=== PATIENT | female | born 1960 | race Caucasian/White ===

== ENCOUNTER 2018-02-12 14:35 | Emergency (ER) | payer OTHER, SELFPAY ==
--- NOTE | 2018-02-12 16:54 | RAD ---
SINGLE CONTRAST BARIUM SWALLOW 02/12/18 CLINICAL HISTORY: Dysphagia. FINDINGS: Emergency barium swallow performed at request of ordering Emergency Room physician. The patient was a dministered thin liquid barium which was visualized under real time fluoroscopy. There is appropriate swallowing mechanism and esophageal motility, with free passage of liquid contrast through the esoph coreen and into the stomach without evidence of persistent mass effect or constricting lesion. No signi ficant reflux or evidence of hiatal hernia. 12.5 mm barium tablet was administered and did pass the e sophagus into the stomach. IMPRESSION: Unremarkable single contrast barium swallow. POS: [facility]
== END 2018-02-12 17:42 | disposition home or self-care (01) ==
LOC: ERS 14:35
DX: R13.10 Dysphagia, unspecified (principal); E11.9 Type 2 diabetes mellitus without complications; E03.9 Hypothyroidism, unspecified; E78.5 Hyperlipidemia, unspecified; Z79.84 Long term (current) use of oral hypoglycemic drugs; Z79.899 Other long term (current) drug therapy
CPT/HCPCS: 74220

== ENCOUNTER 2019-01-26 14:50 | Emergency (ER) | payer SELFPAY ==
[2019-01-26] MEDS ORDERED: Ondansetron PF 4 MG/2 ML Vial ONE (15:01)
[2019-01-26] MEDS ORDERED: Mag-Al 1200 mg/1200 mg/30 ML UDCUP ONE (15:30)
[2019-01-26] MEDS ORDERED: Lidocaine Viscous Sol 2% 15 ml UD Cup ONE (15:30)
[2019-01-26 15:41] LABS: #Basophils 0.1 thou/uL (0.0-0.2); #Eosinphils 0.2 thou/uL (0.0-0.7); #Lymphocytes 1.6 thou/uL (1.20-3.40); #Monocytes 0.6 thou/uL (0.11-0.59); #Neutrophils 4.4 thou/uL (1.40-6.50); %Basophils 0.9 % (0.0-1.0); %Eosinophils 2.5 % (0.0-10.0); %Lymphocytes 23.4 % (21.0-51.0); %Monocytes 9.3 % (0.0-10.0); %Neutrophils 63.9 % (42.0-75.0); Hemoglobin 13.3 g/dL (12.0-16.0); Mean Corpuscular HGB CONC 33.9 g/dL (32.0-36.0); Mean Corpuscular Hemoglobin 29.7 pg (27.0-31.0); Mean Corpuscular Volume 87.8 fL (78.0-98.0); Mean Platelet Volume 6.8 fL (7.4-10.4); Platelet Count 319 thou/uL (130-400); RBC Distribution Width 12.1 % (11.5-14.5); Red Blood Cell (RBC) Count 4.48 mill/uL (4.20-5.40); White Blood Cell (WBC) Count 6.9 thou/uL (4.8-10.8)
[2019-01-26 15:51] LABS: ALT (SGPT) 32 U/L (8-55); AST (SGOT) 28 U/L (5-34); Albumin 4.3 g/dL (3.5-5.0); Alkaline Phosphatase 73 U/L (40-110); Anion Gap 13 mmol/L (10-20); BUN (Urea Nitrogen) 16 mg/dL (9.8-20.1); Bilirubin, Total 0.5 mg/dL (0.2-1.2); Calc. Creatinine Clearance 0 mL/min (70-130); Calcium 9.9 mg/dL (7.8-10.44); Carbon Dioxide 23 mmol/L (22-29); Chloride 103 mmol/L (98-107); Estimated GFR-MDRD 73; Glucose 86 mg/dL (70-105); Lipase 32 U/L (8-78); Potassium 4.2 mmol/L (3.5-5.1); Protein, Total 7.3 g/dL (6.0-8.3); Sodium 135 mmol/L (136-145)
[2019-01-26] MEDS ORDERED: Glycopyrrolate 0.4 MG/ 2 ML VIAL SLOW IVP SCH (16:00)
[2019-01-26] MEDS ORDERED: Glycopyrrolate 0.2 MG/ML 5 ML SYRINGE SLOW IVP SCH (16:15)
--- NOTE | 2019-01-26 16:40 | RAD ---
SINGLE VIEW OF THE CHEST: 01/26/19 COMPARISON: None. HISTORY: Syncope with possible aspiration. FINDINGS: Single view of the chest shows a normal sized cardiomediastinal silhouette. There is no evidence of c onsolidation, mass, or pleural effusion. Degenerative changes and postsurgical changes are seen in th e spine. IMPRESSION: No evidence of acute cardiopulmonary disease. POS: [facility]
[2019-01-26 16:47] LABS: Bacteria/HPF None Seen HPF (None Seen); Bilirubin Negative (Negative); Blood, Urine 1+ (Negative); Clarity Clear (Clear); Glucose, Urine (Dipstick) Normal (Negative); Leukocyte 75 Leu/uL (Negative); Nitrite Negative (Negative); Protein, Urine (Dipstick) 20 mg/dL (Neg-Trace); Squamous Epithelial 0-3 HPF (0-3); Urobilinogen Normal mg/dL (Less than 2)
== END 2019-01-26 17:42 | disposition home or self-care (01) ==
LOC: ERS 14:50
DX: R55 Syncope and collapse (principal); R11.2 Nausea with vomiting, unspecified; E03.9 Hypothyroidism, unspecified; E11.9 Type 2 diabetes mellitus without complications; E78.5 Hyperlipidemia, unspecified; Z79.82 Long term (current) use of aspirin; Z79.899 Other long term (current) drug therapy
CPT/HCPCS: 71045; 80053; 81003; 81015; 83690; 84484; 85025; 93005; 96361; 96374; 96375; J2405

== ENCOUNTER 2022-05-30 19:57 | Inpatient (IN) | payer SELFPAY ==
[~2022-05-30 19:57] MED LIST: Iopamidol-370 76% 500 ML 1 ML ONE
[2022-05-30 21:34] LABS: Bilirubin Negative (Negative); Blood, Urine Small (Negative); Clarity Clear (Clear); Glucose, Urine (Dipstick) Negative (Negative); Ketone, Urine Negative (Negative); Leukocyte Moderate (Negative); Nitrite Negative (Negative); Protein, Urine (Dipstick) Trace mg/dL (Neg-Trace); Specific Gravity, Urine 1.015 (1.005-1.030); pH, Urine 7.5 (5.0-9.0)
[2022-05-30 22:05] LABS: ALT (SGPT) 42 U/L (8-55); AST (SGOT) 38 U/L (5-34); Albumin 3.8 g/dL (3.4-4.8); Alkaline Phosphatase 88 U/L (40-110); Anion Gap 15 mmol/L (10-20); BUN (Urea Nitrogen) 14 mg/dL (9.8-20.1); Bilirubin, Total 0.5 mg/dL (0.2-1.2); Calc. Creatinine Clearance 0 mL/min (70-130); Calcium 9.1 mg/dL (7.8-10.44); Carbon Dioxide 19 mmol/L (23-31); Chloride 108 mmol/L (98-107); Estimated GFR 77; Globulin 2.7 g/dL (2.4-3.5); Glucose 95 mg/dL (80-115); Lipase 40 U/L (8-78); Potassium 4.5 mmol/L (3.5-5.1); Protein, Total 6.5 g/dL (5.8-8.1); Sodium 137 mmol/L (136-145)
[2022-05-30 23:21] LABS: Hemoglobin 12.1 g/dL (12.0-16.0); Mean Corpuscular HGB CONC 32.3 g/dL (32.0-36.0); Mean Corpuscular Hemoglobin 28.8 pg (27.0-31.0); Mean Corpuscular Volume 89.2 fl (78.0-98.0); RBC Distribution Width 13.6 % (11.5-14.5)
[2022-05-30 23:36] LABS: Band 10 % (5-11); Lymphocytes 2 % (21-51); MDiff Complete? YES; Mean Platelet Volume 8.6 fL (7.4-10.4); Monocytes 4 % (0-10); Neutrophil 84 % (42-75); Platelet Count 274 10x3/uL (130-400); Platelet Morphology Comment Appears Adequate; White Blood Cell (WBC) Count 26.8 10x3/uL (4.8-10.8)
[2022-05-30] MEDS ORDERED: Cefepime 2 GM VIAL ONE (23:39)
[2022-05-31] MEDS ORDERED: Ondansetron PF 4 MG/2 ML Vial IVP PRN (00:13)
[2022-05-31] MEDS ORDERED: Acetaminophen 325 MG TAB PO PRN (00:13)
[2022-05-31] MEDS ORDERED: metroNIDAZOLE 500 MG/100 ML BAG ONE (00:18)
[2022-05-31] MEDS ORDERED: Dextrose 50% Abboject 50 ML SYRINGE SLOW IVP PRN (00:26)
[2022-05-31] MEDS ORDERED: Dextrose 5% in Water 1,000 ML IV PRN (00:26)
[2022-05-31] MEDS ORDERED: HumaLOG 300 UNITS/3 ML VIAL SC PRN (00:26)
[2022-05-31 02:20] VITALS: BMI 19.5
[2022-05-31] MEDS: Sodium Chloride 0.9% 1,000 ML IV SCH ×2 (03:06→09:13)
[2022-05-31 05:32] LABS: ALT (SGPT) 37 U/L (8-55); AST (SGOT) 32 U/L (5-34); Albumin 3.3 g/dL (3.4-4.8); Alkaline Phosphatase 70 U/L (40-110); Anion Gap 10 mmol/L (10-20); BUN (Urea Nitrogen) 9 mg/dL (9.8-20.1); Bilirubin, Total 0.4 mg/dL (0.2-1.2); Calc. Creatinine Clearance 66 mL/min (70-130); Calcium 8.1 mg/dL (7.8-10.44); Carbon Dioxide 17 mmol/L (23-31); Chloride 112 mmol/L (98-107); Estimated GFR 95; Globulin 2.5 g/dL (2.4-3.5); Glucose 124 mg/dL (80-115); Magnesium 1.8 mg/dL (1.6-2.6); Phosphorus 2.5 mg/dL (2.3-4.7); Potassium 4.1 mmol/L (3.5-5.1); Protein, Total 5.8 g/dL (5.8-8.1); Sodium 135 mmol/L (136-145)
[2022-05-31] MEDS ORDERED: Levothyroxine Sodium 50 MCG TAB PO SCH (06:00)
[2022-05-31] MEDS ORDERED: metroNIDAZOLE 500 MG in Premix Bag 1 BAG IVPB SCH (06:00)
[2022-05-31 06:03] LABS: #Eosinphils 0.1 thou/uL (0.0-0.7); #Lymphocytes 1.5 thou/uL (1.20-3.40); #Monocytes 0.8 thou/uL (0.11-0.59); #Neutrophils 12.2 thou/uL (1.40-6.50); %Basophils 0.3 % (0.0-1.0); %Eosinophils 0.4 % (0.0-10.0); %Monocytes 5.7 % (0.0-10.0); %Neutrophils 83.6 % (42.0-75.0); Hemoglobin 11.3 g/dL (12.0-16.0); Mean Corpuscular HGB CONC 36.1 g/dL (32.0-36.0); Mean Corpuscular Hemoglobin 32.1 pg (27.0-31.0); Mean Platelet Volume 7.7 fL (7.4-10.4); Platelet Count 302 10x3/uL (130-400); RBC Distribution Width 13.1 % (11.5-14.5); White Blood Cell (WBC) Count 14.6 10x3/uL (4.8-10.8)
[2022-05-31] MEDS ORDERED: Liothyronine Sodium 25 MCG TAB PO SCH (09:00)
[2022-05-31] MEDS: FLUoxetine HCl 20 MG CAP PO SCH ×2 (09:47→20:46)
[2022-05-31] MEDS: Cholecalciferol 1,000 UNITS (25 MCG) TAB PO SCH (09:48)
[2022-05-31] MEDS: Aspirin 81 mg Enteric Coated Tablet PO SCH (09:48)
[2022-05-31] MEDS: ALPRAZolam 0.25 MG TAB PO SCH (09:53)
[2022-05-31] MEDS: metroNIDAZOLE 500 MG in Premix Bag 1 BAG IVPB SCH ×2 (09:54→17:25)
[2022-05-31] MEDS: Lactated Ringer's 1,000 ML IV SCH (09:54)
[2022-05-31] MEDS ORDERED: Morphine 4 MG/ML VIAL SLOW IVP PRN ×2 (16:11→16:15)
[2022-05-31 16:44] LABS: Campy jejuni + coli by PCR Negative (Negative); STEC Shiga Toxin 1+2 Negative (Negative); Salmonella spp. by PCR Negative (Negative); Shigella spp + EIEC by PCR Negative (Negative)
[2022-05-31] MEDS ORDERED: ALPRAZolam 0.5 MG TAB PO SCH (21:00)
[2022-06-01] MEDS: metroNIDAZOLE 500 MG in Premix Bag 1 BAG IVPB SCH ×3 (01:16→17:56)
[2022-06-01 05:36] LABS: Anion Gap 9 mmol/L (10-20); BUN (Urea Nitrogen) 6 mg/dL (9.8-20.1); Calc. Creatinine Clearance 72 mL/min (70-130); Calcium 8.7 mg/dL (7.8-10.44); Carbon Dioxide 21 mmol/L (23-31); Chloride 110 mmol/L (98-107); Estimated GFR 99; Glucose 89 mg/dL (80-115); Potassium 3.3 mmol/L (3.5-5.1); Sodium 137 mmol/L (136-145)
[2022-06-01 05:52] LABS: #Basophils 0.1 thou/uL (0.0-0.2); #Eosinphils 0.2 thou/uL (0.0-0.7); #Lymphocytes 1.9 thou/uL (1.20-3.40); #Monocytes 0.9 thou/uL (0.11-0.59); #Neutrophils 4.3 thou/uL (1.40-6.50); %Basophils 0.7 % (0.0-1.0); %Eosinophils 3.1 % (0.0-10.0); %Lymphocytes 25.5 % (21.0-51.0); %Monocytes 12.4 % (0.0-10.0); %Neutrophils 58.2 % (42.0-75.0); Hemoglobin 10.5 g/dL (12.0-16.0); Mean Corpuscular HGB CONC 32.9 g/dL (32.0-36.0); Mean Corpuscular Hemoglobin 29.4 pg (27.0-31.0); Mean Corpuscular Volume 89.2 fl (78.0-98.0); Mean Platelet Volume 7.3 fL (7.4-10.4); Platelet Count 232 10x3/uL (130-400); RBC Distribution Width 12.8 % (11.5-14.5); Red Blood Cell (RBC) Count 3.56 mill/uL (4.20-5.40); White Blood Cell (WBC) Count 7.4 10x3/uL (4.8-10.8)
[2022-06-01] MEDS ORDERED: Levothyroxine Sodium 50 MCG TAB PO SCH (06:00)
[2022-06-01] MEDS: FLUoxetine HCl 20 MG CAP PO SCH (08:38)
[2022-06-01] MEDS: Cholecalciferol 1,000 UNITS (25 MCG) TAB PO SCH (08:38)
[2022-06-01] MEDS: ALPRAZolam 0.25 MG TAB PO SCH (08:38)
[2022-06-01] MEDS: Aspirin 81 mg Enteric Coated Tablet PO SCH (08:39)
[2022-06-01] MEDS ORDERED: Liothyronine Sodium 5 MCG TAB PO SCH (09:00)
[2022-06-01] MEDS: Lactated Ringer's 1,000 ML IV SCH (10:03)
[2022-06-01 12:52] VITALS: BP 128/58; TEMP 98
[2022-06-01] MEDS ORDERED: Icosapent Ethyl 1 GM CAPSULE PO SCH (21:00)
== END 2022-06-01 18:29 | disposition home or self-care (01) | DRG 872 ==
LOC: ERS 19:57 → 2SW 05-31 00:13
PROVIDERS: ADMIT Family Medicine; ATTEND Internal Medicine
DX: A41.89 Other specified sepsis (principal); A08.4 Viral intestinal infection, unspecified; E11.9 Type 2 diabetes mellitus without complications; E86.0 Dehydration; E03.9 Hypothyroidism, unspecified; E78.00 Pure hypercholesterolemia, unspecified; K21.9 Gastro-esophageal reflux disease without esophagitis; F32.A Depression, unspecified; Z79.890 Hormone replacement therapy; Z79.84 Long term (current) use of oral hypoglycemic drugs; Z79.899 Other long term (current) drug therapy
CPT/HCPCS: 36415; 36416; 70450; 71045; 74177; 80048; 80053; 81003; 81015; 83605; 83690; 83735; 84100; 84145; 84443; 84484; 85025; 87040; 87086; 87324; 87449; 87505; 93005; 93306; J0692; J0744; J1650; J2270; J7050; J7120; Q9967; U0003; U0005

== ENCOUNTER 2022-12-12 21:22 | Emergency (ER) | payer SELFPAY ==
[~2022-12-12 21:22] MED LIST changes: -Iopamidol-370 76% 500 ML 1 ML ONE; +Iopamidol-370 76% 500 ML MDV (1 ML CHARGE) ONE
[2022-12-12] MEDS ORDERED: Ondansetron PF 4 MG/2 ML Vial ONE (22:05)
[2022-12-12 22:31] LABS: Troponin I Less than 0.010 ng/mL (< 0.028)
[2022-12-12 22:35] LABS: ALT (SGPT) 27 U/L (8-55); AST (SGOT) 32 U/L (5-34); Albumin 3.6 g/dL (3.4-4.8); Alkaline Phosphatase 79 U/L (40-110); Anion Gap 13 mmol/L (10-20); BUN (Urea Nitrogen) 14 mg/dL (9.8-20.1); Bilirubin, Total 0.4 mg/dL (0.2-1.2); Calc. Creatinine Clearance 0 mL/min (70-130); Calcium 8.9 mg/dL (7.8-10.44); Carbon Dioxide 20 mmol/L (23-31); Chloride 108 mmol/L (98-107); Estimated GFR 78; Globulin 2.7 g/dL (2.4-3.5); Glucose 102 mg/dL (80-115); Lipase 45 U/L (8-78); Magnesium 1.8 mg/dL (1.6-2.6); Potassium 3.5 mmol/L (3.5-5.1); Protein, Total 6.3 g/dL (5.8-8.1); Sodium 137 mmol/L (136-145)
[2022-12-12 22:42] LABS: #Eosinphils 0.1 thou/uL (0.0-0.7); #Neutrophils 8.2 thou/uL (1.40-6.50); %Basophils 0.4 % (0.0-1.0); %Lymphocytes 9.9 % (21.0-51.0); %Monocytes 9.2 % (0.0-10.0); %Neutrophils 78.9 % (42.0-75.0); Hemoglobin 10.7 g/dL (12.0-16.0); Mean Corpuscular HGB CONC 33.4 g/dL (32.0-36.0); Mean Corpuscular Hemoglobin 27.8 pg (27.0-31.0); Mean Corpuscular Volume 83.1 fl (78.0-98.0); Mean Platelet Volume 9.8 fL (7.4-10.4); Platelet Count 251 10x3/uL (130-400); RBC Distribution Width 14.1 % (11.5-14.5); Red Blood Cell (RBC) Count 3.85 mill/uL (4.20-5.40); White Blood Cell (WBC) Count 10.4 10x3/uL (4.8-10.8)
[2022-12-12] MEDS ORDERED: Dicyclomine 20 MG TAB ONE (23:04)
[2022-12-12] MEDS ORDERED: Morphine 4 MG/ML VIAL ONE (23:04)
[2022-12-13] MEDS ORDERED: Promethazine HCl 25 MG/ML VIAL ONE (00:46)
[2022-12-13] MEDS ORDERED: Morphine 4 MG/ML VIAL ONE (00:46)
== END 2022-12-13 01:23 | disposition home or self-care (01) ==
LOC: ERS 21:22
DX: S09.90XA Unspecified injury of head, initial encounter (principal); K52.9 Noninfective gastroenteritis and colitis, unspecified; R55 Syncope and collapse; E11.9 Type 2 diabetes mellitus without complications; W19.XXXA Unspecified fall, initial encounter
CPT/HCPCS: 36415; 70450; 71045; 74177; 80053; 83690; 83735; 84443; 84484; 85025; 93005; 96361; 96365; 96375; 96376; J2270; J2405; J2550; Q9967

== ENCOUNTER 2023-10-27 15:36 | Emergency (ER) | payer MEDICARE, SELFPAY ==
[2023-10-27] MEDS ORDERED: diphenhydrAMINE 50 MG/ML VIAL ONE (16:46)
[2023-10-27] MEDS ORDERED: Metoclopramide HCl 10 MG (2 mL) VIAL ONE (16:47)
[2023-10-27 16:50] LABS: ALT (SGPT) 22 U/L (8-55); AST (SGOT) 28 U/L (5-34); Albumin 3.5 g/dL (3.4-4.8); Alkaline Phosphatase 79 U/L (40-110); Anion Gap 12 mmol/L (10-20); BUN (Urea Nitrogen) 11 mg/dL (9.8-20.1); Bilirubin, Total 0.5 mg/dL (0.2-1.2); Calc. Creatinine Clearance 0 mL/min (70-130); Calcium 9.1 mg/dL (7.8-10.44); Carbon Dioxide 18 mmol/L (23-31); Chloride 111 mmol/L (98-107); Estimated GFR 82; Globulin 3.1 g/dL (2.4-3.5); Glucose 98 mg/dL (80-115); Potassium 3.8 mmol/L (3.5-5.1); Protein, Total 6.6 g/dL (5.8-8.1); Sodium 137 mmol/L (136-145)
[2023-10-27 16:54] LABS: Troponin I 0.011 ng/mL (< 0.028)
[2023-10-27 17:44] LABS: #Basophils 0.04 10x3/uL (0.0-0.2); %Basophils 0.3 % (0.0-1.0); %Eosinophils 0.9 % (0.0-10.0); %Lymphocytes 5.5 % (21.0-51.0); %Monocytes 4.1 % (0.0-10.0); %Neutrophils 88.7 % (42.0-75.0); Hematocrit 35.2 % (36.0-47.0); Hemoglobin 11.6 g/dL (12.0-16.0); Mean Corpuscular Hemoglobin 28.4 pg (27.0-31.0); Mean Corpuscular Volume 86.3 fL (78.0-98.0); Mean Platelet Volume 9.7 fL (7.4-10.4); Platelet Count 330 10x3/uL (130-400); Red Blood Cell (RBC) Count 4.08 mill/uL (4.20-5.40)
[2023-10-27] MEDS ORDERED: Ondansetron PF 4 MG/2 ML Vial ONE (18:32)
[2023-10-27 18:42] LABS: Bacteria/HPF None Seen HPF (None Seen); Bilirubin Negative (Negative); Blood, Urine Trace (Negative); CAUTI Indications for Culture Dysuria,urgency,freq; Clarity Clear (Clear); Glucose, Urine (Dipstick) Normal (Negative); Ketone, Urine Negative (Negative); Leukocyte Negative Leu/uL (Negative); Nitrite Negative (Negative); Protein, Urine (Dipstick) Negative (Neg-Trace); RBC/HPF 0-3 HPF (0-3); Specific Gravity, Urine 1.008 (1.002-1.036); Squamous Epithelial 0-3 HPF (0-3); WBC/HPF 0-3 HPF (0-3); pH, Urine 6.5 (5.0-9.0)
[2023-10-27 18:43] LABS: Urine Culture Reflex No No
== END 2023-10-27 19:50 | disposition home or self-care (01) ==
LOC: ERS 15:36
DX: R42 Dizziness and giddiness (principal); E11.9 Type 2 diabetes mellitus without complications; E78.00 Pure hypercholesterolemia, unspecified; E03.9 Hypothyroidism, unspecified; Z79.899 Other long term (current) drug therapy; Z79.890 Hormone replacement therapy
CPT/HCPCS: 36415; 70450; 71045; 80053; 81001; 84443; 84484; 85025; 93005; 96365; 96375; J1200; J2405; J2765

== ENCOUNTER 2025-01-12 09:55 | Outpatient (CLI) | payer MEDICARE, BC | END 2025-01-12 09:56 | disposition home or self-care (01) | LOC: BICMAMMO 09:55 | PROVIDERS: ATTEND Family Medicine | DX: Z12.31 Encounter for screening mammogram for malignant neoplasm of breast (principal); R31.9 Hematuria, unspecified; Z98.890 Other specified postprocedural states | CPT/HCPCS: 74176; 77063; 77067 ==